=== PATIENT | male | born 1965 | race Hispanic/Latino ===

== ENCOUNTER 2018-11-07 09:37 | Outpatient (CLI) | payer OTHER ==
[2018-11-07] MEDS ORDERED: ISOVUE-370 76%-LOCM 1 ML ONE (12:07)
--- NOTE | 2018-11-07 12:58 | CT ---
CT OF THE ABDOMEN AND PELVIS WITH AND WITHOUT IV CONTRAST: Date: 11/07/18 PROVIDED CLINICAL HISTORY: Hematuria. FINDINGS: The visualized lung bases are free of significant opacity. There is no evidence for urinary tract calculi or hydronephrosis. No evidence for renal mass. The edson al collecting systems, ureters, and urinary bladder demonstrate no filling defect with nonopacificati on of the left distal ureter. The liver, spleen, pancreas, and adrenal glands appear unremarkable. There is no bowel dilatation, inflammatory fat stranding, free fluid, or lymph node enlargement appar ent. Sigmoid colonic diverticulosis is noted without CT evidence for diverticulitis. There is asymmet sergey soft tissue density seen involving the inferior aspects of the rectum left of midline with potent ial effacement of the ischiorectal fossa fat. The osseous structures demonstrate no concerning lytic or blastic lesions. 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 IMPRESSION: 1. Etiology for the patient's hematuria is not evident on this examination. 2. Possible rectal mass. Correlation with physical exam recommended. 3. Chronic findings as above. CODE T. POS: OFF
== END 2018-11-07 09:38 | disposition home or self-care (01) ==
LOC: BICCT 09:37
PROVIDERS: ATTEND Urology
DX: N40.1 Benign prostatic hyperplasia with lower urinary tract symptoms (principal); R31.29 Other microscopic hematuria; M43.16 Spondylolisthesis, lumbar region
CPT/HCPCS: 74178; Q9966

== ENCOUNTER 2019-01-04 07:25 | Outpatient (CLI) | payer OTHER ==
--- NOTE | 2019-01-04 09:34 | CT ---
CT ABDOMEN AND PELVIS WITH IV CONTRAST: HISTORY: Rectal mass. FINDINGS: There is some asymmetry of the soft tissue involving the rectal wall, nonspecific. Correlate with di gital exam and sigmoidoscope, if indicated. Colonic diverticulosis, particularly in the sigmoid colo n, without diverticulitis. The liver, gallbladder, pancreas, spleen and adrenal glands are unremarka ble. No renal calculi or acute obstruction. The appendix is somewhat dilated but thin-walled and no CT evidence for acute appendicitis. Small left inguinal fat-containing hernia. IMPRESSION: 1. Some asymmetric soft tissue in the region of the rectum. Correlate with physical digital examina tion or sigmoidoscope. 2. Sigmoid and left colon diverticulosis without diverticulitis. 3. No other acute process. POS: DELLA
[2019-01-04] MEDS ORDERED: ISOVUE-370 76%-LOCM 1 ML ONE (16:37)
== END 2019-01-04 07:26 | disposition home or self-care (01) ==
LOC: BICCT 07:25
PROVIDERS: ATTEND Internal Medicine
DX: K62.89 Other specified diseases of anus and rectum (principal); K57.30 Diverticulosis of large intestine without perforation or abscess without bleeding
CPT/HCPCS: 74177; Q9966

== ENCOUNTER 2020-01-23 08:45 | Outpatient (CLI) | payer OTHER ==
--- NOTE | 2020-01-23 09:12 | RAD ---
2 view chest: [01/23/2020] Comparison:07/10/2015 HISTORY: Cough, shortness of breath on exertion FINDINGS: Heart and mediastinal contours are grossly unremarkable. No pneumothorax or pleural fluid. No focal consolidation or alveolar edema. IMPRESSION: No acute findings.
== END 2020-01-23 08:46 | disposition home or self-care (01) ==
LOC: BICRAD 08:45
PROVIDERS: ATTEND Family Medicine
DX: R05 Cough (principal)
CPT/HCPCS: 71046